=== PATIENT | male | born 1985 | race Two or more races ===

== ENCOUNTER 2022-01-01 03:56 | Emergency (ER) | payer SELFPAY ==
[~2022-01-01] VITALS: Ht 167.6 cm; Wt 73.0 kg
[2022-01-01] MEDS ORDERED: ASPIRIN 325MG EC TABLET PO ONE (04:15)
[2022-01-01 04:31] LABS: BASOPHILS % 0.6 % (0.0-2.0); EOSINOPHILS % 1.1 % (0.0-5.0); HEMATOCRIT. 37.5 % (42.0-52.0); HEMOGLOBIN. 13.2 g/dL (14.0-18.0); LYMPHOCYTES % 15.8 % (20.0-50.0); MEAN CORPUSCULAR HEMOGLOBIN 32.6 pg (28.0-32.0); MEAN CORPUSCULAR VOLUME 92.6 fL (80.0-94.0); MEAN PLATELET VOLUME 8.3 fl (7.4-10.4); MONOCYTES % 7.3 % (2.0-8.0); NEUTROPHILS % 75.2 % (40.0-76.0); PLATELET 316 x1000/uL (130-400); RED BLOOD CELL COUNT 4.06 mill/uL (4.7-6.1); RED CELL DISTRIBUTION WIDTH 13.7 % (11.6-14.6)
[2022-01-01 04:39] LABS: CHLORIDE 105 mEq/L (98-107)
[2022-01-01] MEDS ORDERED: POTASSIUM CHLORIDE 20MEQ TABLET SR PO SCH (05:45)
[2022-01-01 10:00] VITALS: BP 120/75
== END 2022-01-01 10:16 | disposition home or self-care (01) ==
LOC: ER 07:25
DX: R07.89 Other chest pain (principal); F17.290 Nicotine dependence, other tobacco product, uncomplicated; F15.10 Other stimulant abuse, uncomplicated; I25.2 Old myocardial infarction
CPT/HCPCS: 36415; 71045; 80053; 80320; 83605; 83880; 84484; 85025; 85379; 93005; 99285; 99406; G0480

== ENCOUNTER 2022-01-01 23:06 | Emergency (ER) | payer SELFPAY ==
[~2022-01-01] VITALS: Ht 167.6 cm; Wt 70.0 kg
[2022-01-01 23:07] VITALS: BP 164/88
[2022-01-01] MEDS ORDERED: OLANZAPINE 5MG TABLET PO SCH (23:45)
[2022-01-02] MEDS ORDERED: LORAZEPAM 2MG/ML CPJ IM ONE
[2022-01-02] MEDS ORDERED: OLANZAPINE 10 MG/VIAL IM ONE
[2022-01-02] MEDS ORDERED: DIPHENHYDRAMINE 50MG/ML VIAL IM ONE
== END 2022-01-02 00:05 | disposition left against medical advice (07) ==
LOC: ER 23:06
DX: F20.0 Paranoid schizophrenia (principal); F15.10 Other stimulant abuse, uncomplicated; F11.10 Opioid abuse, uncomplicated; R03.0 Elevated blood-pressure reading, without diagnosis of hypertension; Z91.14 Patient's other noncompliance with medication regimen
CPT/HCPCS: 99283; J1200; J2060; J3490